=== PATIENT | male | born 1960 | race Caucasian/White ===

== ENCOUNTER 2016-08-27 15:42 | Emergency (ER) | payer BC ==
[2016-08-27 16:13] VITALS: BP 124/87
--- NOTE | 2016-08-27 18:54 | UC ---
Psychiatric Complaint HPI - HPI Summary HPI Summary: PT WITH A H/O ANXIETY COMES IN WITH FEELINGS OF PANIC AND ANXIETY SINCE EARLIER TODAY. SINCE BEING HERE IS FEELING MUCH BETTER. REPORTS HE WAS ON PAXIL ABOUT 5 YEARS AGO BUT WEANED OFF BECAUSE HE WAS DOING WELL. STATES THAT HE HAS A LOT OF STRESS WITH HIS MOTHER BEING SICK AND KNOWS HE DRINKS TOO MUCH ALCOHOL. HE CALLED HIS IN ACUTE STATE OF DISTRESS AND SHE BROUGHT HIM HERE. HE FELT COMPLETELY OVERWHELMED AT THE TIME. NO SI/HI. - History Of Current Complaint Chief Complaint: UCAlteredMentalStatus Stated Complaint: ANXIETY Time Seen by Provider: 08/27/16 18:06 Hx Obtained From: Patient Onset/Duration: Sudden Onset, Lasting Minutes, Resolved Severity Initially: Moderate Severity Currently: None Character: Anxious Aggravating Factor(s): Recent Stress, Alcohol Use Alleviating Factor(s): Nothing Associated Signs And Symptoms: Negative Related History: Positive For: Prior Psychiatric Issues - ANXIETY - Allergies/Home Medications Allergies/Adverse Reactions: Allergies Allergy/AdvReac Type Severity Reaction Status Date / Time CATS AdvReac Mild Runny Nose Uncoded 08/27/16 16:13 PMH/Surg Hx/FS Hx/Imm Hx Psychological History Of: Reports: Anxiety - CONTROLLED WITH MEDICATION - Surgical History Surgical History: Yes Surgery Procedure, Year, and Place: Bilateral Knee Arthroscopies X 3 TIMES [facility] - Family History Known Family History: Positive: Other - HIGH CHOLESTEROL - Social History Alcohol Use: Daily Alcohol Amount: 3-4 cans 24 oz beer Substance Use Type: None Smoking Status (MU): Never Smoked Tobacco Review of Systems Constitutional: Negative Skin: Negative Respiratory: Negative Cardiovascular: Negative Gastrointestinal: Negative Psychological: Negative All Other Systems Reviewed And Are Negative: Yes Physical Exam Triage Information Reviewed: Yes Appearance: Well-Appearing, No Pain Distress, Well-Nourished Vital Signs: Initial Vital Signs Temp 96.9 F 08/27/16 16:05 Pulse 98 08/27/16 16:05 Resp 18 08/27/16 16:05 BP 124/87 08/27/16 16:05 Pulse Ox 97 08/27/16 16:05 Vital Signs Reviewed: Yes Eyes: Positive: Conjunctiva Clear ENT: Positive: Hearing grossly normal Neck: Positive: Supple Respiratory Exam: Normal Cardiovascular Exam: Normal Abdomen Description: Positive: Soft Musculoskeletal: Positive: No Edema Neurological: Positive: Alert Psychological: Positive: Age Appropriate Behavior Skin: Negative: rashes Psych Complaint Course/Dx - Differential Dx/Diagnosis Provider Diagnoses: ANXIETY Discharge - Discharge Plan Condition: Stable Disposition: HOME Prescriptions: PARoxetine HCL TAB* [Paxil TAB*] 10 mg PO DAILY #30 tab Patient Education Materials: Anxiety (ED) Referrals: Yoli Banerjee MD [Medical Doctor] - 2 Weeks Additional Instructions: WE HAVE STARTED YOU ON A LOW DOSE OF PAXIL TODAY. FOLLOW-UP WITH YOUR PCP IN 2 WEEKS FOR RE-EVALUATION. YOU MAY NEED A DOSE ADJUSTMENT IF YOU FEEL YOUR SYMPTOMS ARE NOT ADEQUATELY CONTROLLED ON LOW DOSE MEDICATION. BE AWARE THAT YOUR ALCOHOL INTAKE IS EXCESSIVE AND WHEN YOU ARE READY ALCOHOL CESSATION IS IN ORDER.
== END 2016-08-27 18:30 | disposition home or self-care (01) ==
LOC: UCEAST 15:42
DX: F41.9 Anxiety disorder, unspecified (principal); F10.99 Alcohol use, unspecified with unspecified alcohol-induced disorder
CPT/HCPCS: 99212; G0463

== ENCOUNTER 2018-06-18 15:25 | Emergency (ER) | payer BC ==
[2018-06-18 15:42] VITALS: BP 153/94
--- NOTE | 2018-06-18 16:02 | UC ---
Cardiac HPI - HPI Summary HPI Summary: 58-year-old male comes in to clinic today with a chief complaint of right rib injury. This morning at home he slipped and fell and landed on a curb on his right side of his chest. Got a bruise right lower lateral ribs. It hurts more when he coughs or takes a deep breath. Not feel short of breath at rest. Denies any other injury no abdominal pain. Has had a normal bowel movement and urinated normally today. Not see any blood in urine. Some been able eat and drink normally today. - History of Current Complaint Chief Complaint: UCTrauma Stated Complaint: RIB INJURY Time Seen by Provider: 06/18/18 15:49 Pain Intensity: 7 - Allergy/Home Medications Allergies/Adverse Reactions: Allergies Allergy/AdvReac Type Severity Reaction Status Date / Time CATS AdvReac Mild Runny Nose Uncoded 06/18/18 15:42 PMH/Surg Hx/FS Hx/Imm Hx Previously Healthy: Yes - Surgical History Surgical History: Yes Surgery Procedure, Year, and Place: Bilateral Knee Arthroscopies X 3 TIMES [facility], RIGHT HIP SURGERY ("CLEAN UP THE CARTILAGE") 08/2017 - Family History Known Family History: Positive: Other - HIGH CHOLESTEROL - Social History Alcohol Use: Daily Alcohol Amount: 2 BEERS/DAY Substance Use Type: None Smoking Status (MU): Never Smoked Tobacco Review of Systems All Other Systems Reviewed And Are Negative: Yes Constitutional: Positive: Negative Skin: Positive: Bruising Eyes: Positive: Negative ENT: Positive: Negative Respiratory: Positive: Negative Cardiovascular: Positive: Chest Pain Gastrointestinal: Positive: Negative Genitourinary: Positive: Negative. Negative: Hematuria Motor: Positive: Negative Neurovascular: Positive: Negative Musculoskeletal: Positive: Negative Neurological: Positive: Negative Psychological: Positive: Negative Is Patient Immunocompromised?: No Physical Exam Triage Information Reviewed: Yes Appearance: Well-Appearing, Well-Nourished, Pain Distress - mild with deep breath Vital Signs: Initial Vital Signs Temp 97.8 F 06/18/18 15:38 Pulse 80 06/18/18 15:38 Resp 16 06/18/18 15:38 BP 153/94 06/18/18 15:38 Pulse Ox 96 06/18/18 15:38 Vital Signs Reviewed: Yes Eye Exam: Normal Eyes: Positive: Conjunctiva Clear Neck exam: Normal Neck: Positive: Supple, Nontender Respiratory: Positive: Lungs clear, Normal breath sounds, No respiratory distress, Other: - tender to palpation rt lower lateral ribs Cardiovascular: Positive: RRR Abdomen Description: Positive: Nontender, Soft. Negative: CVA Tenderness (R), CVA Tenderness (L) Bowel Sounds: Positive: Present Musculoskeletal Exam: Normal Musculoskeletal: Positive: Strength Intact, ROM Intact Neurological Exam: Normal Neurological: Positive: Alert, Muscle Tone Normal Psychological Exam: Normal Psychological: Positive: Age Appropriate Behavior Skin: Positive: Other - bruise rt lower lateral ribs - Assessment/Plan Course Of Treatment: Order Information: RIBS RT UNI W/PA CH MIN 3 VWS. Accession Number: [id number]. CPT: 73664. Indication: Pain, fall. 3 views of the right ribs including dual energy PA view of the chest is reviewed. There is fracture of the right 10th rib posterior laterally. No significant displacement. is noted. Dual energy PA view of the chest demonstrate no mediastinal shift. Heart is of. normal size and configuration. There is blunting of the right costophrenic angle consistent with a small right pleural. effusion. IMPRESSION: Fracture of the right 10th rib without displacement. Small right pleural. effusion is noted. No definite pneumothorax is noted. ___ . <Electronically signed by Anna Larson MD in OV> 06/18/18 0474. I discussed the x-ray report with the patient. The plan is ibuprofen and Percocet and an incentive spirometer and follow up with primary care doctor. I discussed the relevance of the pleural effusion and that if he gets more short of breath or is having any other difficulties he needs to get reevaluated in the emergency department. - Clinical Impression Provider Diagnosis: Right rib fracture, Pleural effusion on right Discharge - Sign-Out/Discharge Documenting (check all that apply): Patient Departure All imaging exams completed and their final reports reviewed: Yes - Discharge Plan Condition: Stable Disposition: HOME Prescriptions: oxyCODONE/Acetamin 5/325 MG* [Percocet 5/325 TAB*] 1 tab PO Q4H PRN #30 tab MDD 6 PRN Reason: Pain Patient Education Materials: Rib Fracture (ED), Pleural Effusion (ED) Forms: *Work Release Referrals: Yoli Banerjee MD [Primary Care Provider] - Additional Instructions: FOLLOW UP WITH YOUR DOCTOR. USE THE INCENTIVE SPIROMETER EVERY 4 HOURS OR MORE OFTEN WHILE AWAKE TO HELP AVOID RESPIRATORY INFECTION. GO TO THE EMERGENCY DEPARTMENT FOR ANY WORSENING OF YOUR CONDITION; PAIN, SHORTNESS OF BREATH, FEVER, YOU FEEL LIKE PASSING OUT OR QUESTIONS OR CONCERNS. - Billing Disposition and Condition Condition: STABLE Disposition: Home
[2018-06-18] MEDS ORDERED: Ibuprofen TAB* 600 MG PO ONE (17:01)
== END 2018-06-18 17:25 | disposition home or self-care (01) ==
LOC: UCEAST 15:25
DX: S22.31XA Fracture of one rib, right side, initial encounter for closed fracture (principal); J90 Pleural effusion, not elsewhere classified; Z91.048 Other nonmedicinal substance allergy status; W01.0XXA Fall on same level from slipping, tripping and stumbling without subsequent striking against object, initial encounter; Y92.9 Unspecified place or not applicable
CPT/HCPCS: 81003; 99212; A9270-GY; G0463

== ENCOUNTER 2023-12-24 08:12 | Observation (INO) ==
[~2023-12-24 08:12] MED LIST: Metoclopramide 5 MG/ML VIAL (10 mg) IV PRN; Naloxone 0.4 mg VIAL 0.4 mg/ml 1 ml VIAL IV PRN; Ondansetron 4 mg VIAL 2 MG/ML 2 ml VIAL IV PRN
[2023-12-24] MEDS ORDERED: ceFAZolin 2 GM PREMIX 2 GM/50 ML BAG ONE (08:55)
[2023-12-24] MEDS ORDERED: Tranexamic Acid 1 GM/100ML BAG 2,000 MG/200 ML BAG IV ONE (08:56)
[2023-12-24] MEDS ORDERED: NS 0.45% 1000 ml BAG 1,000 ML IV SCH (09:00)
[2023-12-24 09:14] LABS: Rapid COVID-19 Molecular Undetected (Undetected)
[2023-12-24] MEDS: Lactated Ringers 1000 ml BAG 1,000 ML IV SCH ×2 (09:28→16:09)
[2023-12-24] MEDS ORDERED: fentaNYL 100 mcg/2 ml 50 MCG/ML VIAL ONE ×3 (09:59→15:17)
[2023-12-24] MEDS ORDERED: Midazolam 2 mg/2 ml VIAL 1 mg/ml 2 ml VIAL (2 mg) ONE (10:00)
[2023-12-24] MEDS ORDERED: Rocuronium 50 mg VIAL 10 mg/ml 5 ml VIAL (50 mg) ONE ×3 (10:39→12:21)
[2023-12-24] MEDS ORDERED: HYDROmorphone 0.5 MG/0.5 ML SYRINGE ONE ×4 (11:35→12:41)
[2023-12-24] MEDS ORDERED: ROPIVACAINE 5 MG/ML 30 ML BTL (0.5%) ONE (11:36)
[2023-12-24] MEDS ORDERED: Dexamethasone IV 4 MG/ML VIAL 1 ml VIAL ONE (11:52)
[2023-12-24] MEDS ORDERED: Ondansetron 4 mg VIAL 2 MG/ML 2 ml VIAL ONE (11:52)
[2023-12-24] MEDS: fentaNYL 100 mcg/2 ml 50 MCG/ML VIAL IV PRN (14:05)
[2023-12-24] MEDS ORDERED: Morphine 2 MG/ML SYRINGE IV PRN (14:07)
[2023-12-24] MEDS ORDERED: Ondansetron ODT 4 mg TAB 4 MG TAB PO PRN (14:07)
[2023-12-24] MEDS ORDERED: Calcium Carb (TUMS) 500 mg CHEW TAB PO PRN (14:07)
[2023-12-24] MEDS ORDERED: Lactulose 30 ml UDC PO PRN (14:07)
[2023-12-24] MEDS ORDERED: Ondansetron 4 mg VIAL 2 MG/ML 2 ml VIAL IV PRN (14:07)
[2023-12-24] MEDS ORDERED: Magnesium Hydroxide LIQ 30 ML UDC PO PRN (14:07)
[2023-12-24] MEDS ORDERED: ceFAZolin 2 GM in NS PREMIX 2 GM/100 ML BAG IVPB SCH (15:00)
[2023-12-24] MEDS: Scopolamine 1 mg/72hr PATCH TRANSDERM ONE (17:46)
[2023-12-24] MEDS: Buffered Lidocaine 1% SYRIN 1 ml INTRADERM ONE (17:46)
[2023-12-24] MEDS: Acetaminophen IV 1 GM/100ML 1,000 MG/100 ML BAG IV ONE (17:46)
[2023-12-24] MEDS: Thiamine 100 MG/ML 2 ml VIAL (200 mg) IM ONE (18:36)
[2023-12-24] MEDS: diazePAM INJ CARPUJECT 5 MG/ML SYRINGE IV ONE (18:37)
[2023-12-24] MEDS: ceFAZolin 2 GM PREMIX 2 GM/50 ML BAG IV SCH (19:54)
[2023-12-24] MEDS: Magnesium Hydroxide LIQ 30 ML UDC PO SCH (19:56)
[2023-12-25 06:01] LABS: Calcium 8.1 mg/dL (8.6-10.3); Creatinine, Serum 1.08 mg/dL (0.67-1.17); Potassium 3.8 mmol/L (3.5-5.0); eGFR CKD-EPI 78.1 (>60)
[2023-12-25 06:15] LABS: Hemoglobin 9.2 g/dL (13.2-16.3); Mean Platelet Volume 8.9 fL (7.5-11.2); Platelet Count 151 10^3/uL (150-450)
[2023-12-25] MEDS ORDERED: Vitamin THERAPEUTIC TAB PO SCH (09:00)
[2023-12-25] MEDS: Multivitamins/Minerals TAB PO SCH (10:33)
[2023-12-25 13:57] VITALS: BP 118/64
== END 2023-12-25 15:00 | disposition home or self-care (01) ==
LOC: OR 08:12 → EDSTATUS 09:00 → INTOOBSV 15:56 → SSU 15:56
PROVIDERS: ADMIT Orthopaedic Surgery Adult Reconstructive Orthopaedic Surgery; ATTEND Orthopaedic Surgery Adult Reconstructive Orthopaedic Surgery